=== PATIENT | female | born 1995 | race Caucasian/White ===

== ENCOUNTER → 2022-08-16 | Outpatient (CLI) | payer MEDICARE ==
[2022-08-16 08:10] LABS: Basophils % (A) 0 %; Eosinophils # (A) 0.1 k/uL (0-0.7); Eosinophils % (A) 2 %; HCT 36.9 % (34.0-46.0); HGB 12.7 gm/dL (11.4-16.0); Lymphocytes # (A) 1.9 k/uL (1.0-4.8); Lymphocytes % (A) 35 %; MCH 31.8 pg (25.0-35.0); MCHC 34.4 g/dL (31.0-37.0); MCV 92.5 fL (80.0-100.0); Mean Platelet Volume 7.3; Monocytes # (A) 0.5 k/uL (0-1.0); Monocytes % (A) 9 %; Neutrophils # (A) 2.8 k/uL (1.3-7.7); Neutrophils % (A) 52 %; Platelet Count 219 k/uL (150-450); RBC 3.99 m/uL (3.80-5.40); RDW 12.5 % (11.5-15.5); WBC 5.4 k/uL (3.8-10.6)
[2022-08-16 08:28] LABS: ALT 22 U/L (4-34); AST 22 U/L (14-36); African American GFR (CKD) >90 (>60 ml/min/1.73 sqM); Albumin 4.3 g/dL (3.5-5.0); Albumin/Globulin Ratio 1.6; Alkaline Phosphatase 26 U/L (38-126); Anion Gap 7 mmol/L; Blood Urea Nitrogen 19 mg/dL (7-17); Calcium 9.4 mg/dL (8.4-10.2); Carbon Dioxide 28 mmol/L (22-30); Chloride 103 mmol/L (98-107); Globulin 2.7 g/dL; Glucose 84 mg/dL (74-99); Non-African American GFR(CKD) >90 (>60 ml/min/1.73 sqM); Potassium 4.5 mmol/L (3.5-5.1); Sodium 138 mmol/L (137-145); Total Bilirubin 0.5 mg/dL (0.2-1.3)
[2022-08-16 08:39] LABS: T4, Free (Free Thyroxine) 0.96 ng/dL (0.78-2.19)
[2022-08-16 17:05] LABS: Chol/HDL Ratio 2.82 Ratio; LDL Cholesterol,Calculated 93.2 mg/dL (0.0-131.0); VLDL Calculation 12.04 mg/dL (5.00-40.00)
== END | disposition home or self-care (01) ==
LOC: LABWHC1 07:13
PROVIDERS: ATTEND Internal Medicine
DX: F43.10 Post-traumatic stress disorder, unspecified (principal)
CPT/HCPCS: 36415; 80053; 80061; 81025; 82306; 83036; 84439; 84443; 85025

== ENCOUNTER 2023-09-08 21:54 | Emergency (ER) | payer OTHER ==
[2023-09-08 22:08] VITALS: BP 137/90; PULSE 130; RESP 18; TEMP 98.6
--- NOTE | 2023-09-08 22:50 | XR ---
EXAM: XR Right Knee, 3 Views CLINICAL HISTORY: ITS.REASON XR Reason: Pain TECHNIQUE: Three views of the right knee. COMPARISON: No previous studies. FINDINGS: Bones/joints: Unremarkable. Normal anatomic alignment. No acute fracture, dislocation, joint effusion. Soft tissues: Soft tissues are unremarkable. IMPRESSION: Unremarkable plain film evaluation of the right knee joint.
--- NOTE | 2023-09-08 23:15 | ED ---
General Adult HPI - General Chief complaint: Extremity Injury, Lower Stated complaint: Rt knee pain Time Seen by Provider: 09/08/23 22:57 Source: patient Mode of arrival: wheelchair Limitations: no limitations - History of Present Illness Initial comments: 28-year-old female presenting with chief complaint of right knee pain. Patient was skateboarding when she misstepped and felt a pop in her knee. She states that it felt like her upper leg went [address] and her lower leg with direction. Patient did not fall onto the leg. She states that she cannot bear weight, when she does try bearing weight it feels like her knee gives out. - Related Data Allergies Allergy/AdvReac Type Severity Reaction Status Date / Time tioconazole Allergy Rash/Hives Verified 09/08/23 22:04 [From Monistat 1 (tioconazole)] Review of Systems ROS Statement: Those systems with pertinent positive or pertinent negative responses have been documented in the HPI. ROS Other: All systems not noted in ROS Statement are negative. Past Medical History Past Medical History: No Reported History History of Any Multi-Drug Resistant Organisms: None Reported Past Surgical History: Tubal Ligation Past Psychological History: Depression Smoking Status: Never smoker Past Alcohol Use History: Occasional Past Drug Use History: Marijuana General Exam Limitations: no limitations General appearance: alert, in no apparent distress Head exam: Present: atraumatic, normocephalic Eye exam: Present: normal appearance, EOMI Neck exam: Present: normal inspection. Absent: meningismus Respiratory exam: Absent: respiratory distress Right Knee exam: Present: normal inspection, tenderness. Absent: swelling, deformity, crepitus Neurovascular tendon exam: Present: no vascular compromise Neurological exam: Present: alert, oriented X3 Psychiatric exam: Present: normal affect, normal mood Skin exam: Present: warm, dry Course Vital Signs 09/08/23 22:01 Temperature 98.6 F Pulse Rate 130 H Respiratory 18 Rate Blood Pressure 137/90 O2 Sat by Pulse 97 Oximetry Medical Decision Making - Medical Decision Making Was pt. sent in by a medical professional or institution (, PA, COMMUNITY PROGRAM ASSISTANT, urgent care, hospital, or jail...) When possible be specific @ -No Did you speak to anyone other than the patient for history (EMS, parent, family, police, friend...)? What history was obtained from this source @ -No Did you review nursing and triage notes (agree or disagree)? Why? @ -I reviewed and agree with nursing and triage notes Were old charts reviewed (outside hosp., previous admission, EMS record, old EKG, old radiological studies, urgent care reports/EKG's, jail records)? Report findings @ -No old charts were reviewed Differential Diagnosis (chest pain, altered mental status, abdominal pain women, abdominal pain men, vaginal bleeding, weakness, fever, dyspnea, syncope, headache, dizziness, GI bleed, back pain, seizure, CVA, palpatations, mental health, musculoskeletal)? @ -Differential Musculoskeletal Muscular strain, contusion, ligament sprain, fracture, arthritis, septic arthritis, bursitis, cellulitis, muscle spasm, nerve compression, DVT, arterial occlusion, herpes zoster, electrolyte abnormality, tumor.... This is not meant to be in all inclusive list EKG interpreted by me (3pts min.). @ -As above X-rays interpreted by me (1pt min.). @ -Unremarkable x-rays of the knee CT interpreted by me (1pt min.). @ -None done U/S interpreted by me (1pt. min.). @ -None done What testing was considered but not performed or refused? (CT, X-rays, U/S, labs)? Why? @ -None What meds were considered but not given or refused? Why? @ -None Did you discuss the management of the patient with other professionals (professionals i.e. , PA, COMMUNITY PROGRAM ASSISTANT, lab, RT, psych nurse, protective services social worker, staff radiation therapist, teacher, contracts officer, mattress spring encaser)? Give summary @ -No Was smoking cessation discussed for >3mins.? @ -No Was critical care preformed (if so, how long)? @ -No Were there social determinants of health that impacted care today? How? (Homelessness, low income, unemployed, alcoholism, drug addiction, transportation, low edu. Level, literacy, decrease access to med. care, senior care, rehab)? @ -No Was there de-escalation of care discussed even if they declined (Discuss DNR or withdrawal of care, Hospice)? DNR status @ -No What co-morbidities impacted this encounter? (DM, HTN, Smoking, COPD, CAD, Cancer, CVA, ARF, Chemo, Hep., AIDS, mental health diagnosis, sleep apnea, morbid obesity)? @ -None Was patient admitted / discharged? Hospital course, mention meds given and route, prescriptions, significant lab abnormalities, going to OR and other pertinent info. @ -28-year-old female presenting for evaluation of right knee injury that occurred this evening. The patient is neurovascularly intact. Pain along the joint line. X-rays negative. Patient is placed in a knee immobilizer and provided with crutches, instructed to remain nonweightbearing and follow-up with orthopedics. Discharged home. Follow-up with PCP. Report back to ER with any new or worsening symptoms. Discussed return parameters and answered all questions. Patient conveyed verbal understanding and agreed to the plan. I discussed this case in detail with my attending Dr. Hunter Undiagnosed new problem with uncertain prognosis? @ -No Drug Therapy requiring intensive monitoring for toxicity (Heparin, Nitro, Insulin, Cardizem)? @ -No Were any procedures done? @ -No Diagnosis/symptom? @ -Knee sprain Acute, or Chronic, or Acute on Chronic? @ -Acute Uncomplicated (without systemic symptoms) or Complicated (systemic symptoms)? @ -Uncomplicated Side effects of treatment? @ -No Exacerbation, Progression, or Severe Exacerbation? @ -No Poses a threat to life or bodily function? How? (Chest pain, [place], [place], pneumonia, PE, COPD, DKA, ARF, appy, cholecystitis, CVA, Diverticulitis, Homicidal, Suicidal, threat to staff... and all critical care pts) @ -No Disposition Clinical Impression: Knee sprain Disposition: HOME SELF-CARE Condition: Good Instructions (If sedation given, give patient instructions): Knee Sprain (ED) Additional Instructions: Follow-up with PCP and orthopedics. Report back to ER with any new or worsening symptoms. Take Motrin and Tylenol as needed for pain control. Rest, ice, compress, and elevate the knee. Use knee immobilizer and crutches, nonweightbearing until cleared by orthopedics. Is patient prescribed a controlled substance at d/c from ED?: No Referrals: Ellen Ritchie FNPBC [REFERRING] - 1-2 days Alex Mensah DO [Doctor of Osteopathic Medicine] - 1-2 days Time of Disposition: 23:15
[2023-09-08] MEDS: KETOROLAC 15 MG/ML 1 ML VIAL IM STA (23:44)
[2023-09-08] MEDS: ACET/COD 300 MG/30 MG STARTER PACK 6 TAB BTL PO STA (23:45)
== END 2023-09-08 23:46 | disposition home or self-care (01) ==
LOC: EC 21:54
DX: S83.91XA Sprain of unspecified site of right knee, initial encounter (principal); Z88.1 Allergy status to other antibiotic agents; X50.9XXA Other and unspecified overexertion or strenuous movements or postures, initial encounter; Y93.51 Activity, roller skating (inline) and skateboarding
CPT/HCPCS: 73562; 99283; 96372; L1830; J1885

== ENCOUNTER → 2023-09-15 | Outpatient (CLI) | payer OTHER ==
--- NOTE | 2023-09-15 08:17 | MR ---
EXAMINATION TYPE: MR knee RT wo con DATE OF EXAM: 09/15/2023 COMPARISON: None HISTORY: Right knee pain. TECHNIQUE: Multiplanar, multisequence imaging of the right knee is performed without IV contrast. FINDINGS: There is a small contusion of the posterior lateral tibial plateau but no discrete fracture. There is a large joint effusion. There is a complete tear of the anterior cruciate ligament. The posterior cruciate ligament and colla teral ligaments are intact. There is a small vertical tear of the body of the medial meniscus. The lateral meniscus is intact. There are no osteochondral defects in the articular cartilages are normal. The patellar and quadriceps tendons are intact. IMPRESSION: 1. Mild contusion of the posterior lateral tibial plateau without discrete fracture. 2. Tear of the anterior cruciate ligament. 3. Tear of the medial meniscus. 4. Large joint effusion.
== END | disposition home or self-care (01) ==
LOC: RADMRIMAIN 07:35
PROVIDERS: ATTEND Orthopaedic Surgery
DX: S80.01XA Contusion of right knee, initial encounter (principal); S83.241A Other tear of medial meniscus, current injury, right knee, initial encounter; M25.471 Effusion, right ankle